=== PATIENT | male | born 1930 | race Caucasian/White ===

== ENCOUNTER 2017-03-22 20:10 | Emergency (ER) | payer MEDICARE, OTHER ==
[~2017-03-22] VITALS: Ht 185.4 cm; Wt 88.9 kg
[2017-03-22] MEDS ORDERED: ELIQUIS2.5 MG PO (20:27)
[2017-03-22] MEDS ORDERED: NORVASC2.5 MG PO (20:28)
[2017-03-22] MEDS ORDERED: TYLENOL EXTRA500 MG PO (20:28)
[2017-03-22] MEDS ORDERED: PLAVIX 75 MG TA75 M1 PO (20:29)
[2017-03-22] MEDS ORDERED: ASPIR 8181 MG PO (20:29)
[2017-03-22] MEDS ORDERED: COREG6.25 MG PO (20:29)
[2017-03-22] MEDS ORDERED: FIBER500 MG PO (20:29)
[2017-03-22] MEDS ORDERED: SYNTHROID50 MCG PO (20:30)
[2017-03-22] MEDS ORDERED: PROSCAR 5MG TABL5 MG PO (20:30)
[2017-03-22] MEDS ORDERED: IMDUR 30 MG TAB30 M1 PO (20:30)
[2017-03-22] MEDS ORDERED: RANEXA500 MG PO (20:31)
[2017-03-22] MEDS ORDERED: OMEGA-31000 M1 PO (20:31)
[2017-03-22] MEDS ORDERED: NITROSTAT0.4 M1 SUBLING (20:31)
[2017-03-22] MEDS ORDERED: ZOCOR20 MG PO (20:32)
[2017-03-22] MEDS ORDERED: ZANAFLEX4 MG PO (20:32)
[2017-03-22] MEDS ORDERED: TRAMADOL 50 MG50 MG PO (20:32)
[2017-03-22] MEDS ORDERED: AMBIEN 5 MG TABL5 M1 PO (20:33)
[2017-03-22 20:43] LABS: ABSOLUTE EOSINOPHILS 0.1 thou/uL (0.0-0.7); ABSOLUTE LYMPHOCYTES 1.7 thou/uL (0.8-5.3); ABSOLUTE MONOCYTES 0.6 thou/uL (0.0-1.2); ABSOLUTE NEUTROPHILS 6.6 thou/uL (1.6-8.1); BASOPHILS 0.3 %; EOSINOPHILS 0.6 %; HEMATOCRIT 42.8 % (42.0-52.0); HEMOGLOBIN 14.5 gm/dL (14.0-18.0); LYMPHOCYTES 19.2 %; MCH 32.6 pg (26.0-34.0); MCHC 33.9 g/dL (28.0-37.0); MCV 96.2 fL (80.0-100.0); MONOCYTES 6.4 %; MPV 6.6 fl. (7.2-11.1); NUCLEATED RBCS 0 /100WBC; PLATELET COUNT* 246 thou/uL (150-400); POLYS 73.5 %; RBC 4.45 mil/uL (4.50-6.00); RDW-CV 13.6 % (10.5-14.5)
[2017-03-22 20:53] LABS: CALCIUM 9.3 mg/dL (8.5-10.1); POTASSIUM 4.4 mmol/L (3.5-5.1)
[2017-03-22 20:58] LABS: ALBUMIN 3.5 g/dL (3.4-5.0); APTT 27.9 Seconds (25.0-31.3); INR 1.1; PROTIME 11.1 Seconds (9.20-11.50); TOTAL BILIRUBIN 0.6 mg/dL (<0.1-1.0); TOTAL PROTEIN 6.9 g/dL (6.4-8.2)
[2017-03-22 22:55] VITALS: BP 200/100
--- NOTE | 2017-03-23 14:43 | EKG ---
[place] [address] ELECTROCARDIOGRAM REPORT Name: MANJEET RICHTER Room: [facility]#: [id number] Admission: 03/22/17 Attend Phys: Discharge: 03/22/17 Date of : [birth year] Report #: [id number] THIS REPORT FOR: //name// [facility] ED Test Date: 2017-03-22 Test Time: 20:55:34 Pat Name: MANJEET RICHTER Department: Room: Gender: M Welder Apprentice Gas: HALLEY : 1930 Requested By: Brenton Mandujano Order Number: [id number] MD: Israel Lutz Measurements Intervals [place] Rate: 66 P: -28 GA: 248 QRS: -47 QRSD: 144 T: 129 QT: 446 QTc: 468 Interpretive Statements Sinus rhythm Prolonged GA interval Probable left atrial enlargement Left bundle branch block No previous ECG available for comparison Electronically Signed On 03-23-2017 14:43:14 OCCUPATIONAL THERAPIST ASSISTANT by Israel Lutz [email or web address] <ELECTRONICALLY SIGNED> By: Israel Lutz MD, [facility] 03/23/17 1443 54 54 Israel Lutz MD, FACC /EPI
== END 2017-03-22 22:55 | disposition home or self-care (01) ==
LOC: M.ERS 20:10
PROVIDERS: Family Medicine
DX: S02.80XA Fracture of other specified skull and facial bones, unspecified side, initial encounter for closed fracture (principal); S60.511A Abrasion of right hand, initial encounter; S01.81XA Laceration without foreign body of other part of head, initial encounter; Z95.0 Presence of cardiac pacemaker; Z98.890 Other specified postprocedural states; Z88.0 Allergy status to penicillin; Z88.8 Allergy status to other drugs, medicaments and biological substances; W01.0XXA Fall on same level from slipping, tripping and stumbling without subsequent striking against object, initial encounter; Y93.89 Activity, other specified; Y92.59 Other trade areas as the place of occurrence of the external cause; Y99.8 Other external cause status

== ENCOUNTER 2018-01-24 17:19 | Inpatient (IN) | payer MEDICARE, OTHER ==
[~2018-01-24] VITALS: Ht 185.4 cm; Wt 93.4 kg
--- NOTE | ~2018-01-24 | CON ---
[address] [address] CONSULTATION Name: MANJEET RICHTER Room: [place] [address] ADM IN M.R.#: [id number] Admission: 01/24/18 Attend Phys: Uche Cash MD Discharge: Date of : [birth year] Report #: [id number] THIS REPORT FOR: //name// CC: Uche Mo DATE OF SERVICE: 01/25/2018 CHIEF COMPLAINT: Slurred speech, weakness and also apparently abnormal troponin. HISTORY OF PRESENT ILLNESS: The patient is an 87-year-old man with a complex cardiovascular history, presented via ambulance transfer from his home with acute onset of slurred speech and confusion. This has since resolved. This happened after a nap yesterday afternoon. He was brought to the Emergency Room as a code stroke protocol. He was fully anticoagulated with Eliquis and was not a TPA candidate. This apparently is not the first time this has occurred. He has a known history of prior TIAs and CVAs. At this point, he is not having any symptoms and is alert, oriented without apparent deficit. There was a cardiac troponin level checked for some reason and his level was mildly elevated at 0.56. The patient denies any onset of chest pain, pressure, shortness of breath, neck or jaw discomfort. He does have a history of coronary artery disease, though. 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 He is being evaluated by his usual pharmacy retail support specialist at [facility], Dr. Andrew, and apparently for a Watchman left atrial appendage closure and it was apparently scheduled for the end of the month. He has underlying history of coronary artery disease and numerous coronary interventions. Unfortunately, none of the records from his usual hospital [facility] are available. ALLERGIES: He has allergies to METOPROLOL and PENICILLIN. HOME MEDICATIONS: Eliquis 2.5 mg p.o. b.i.d. and he has not missed any recent doses. He is on amlodipine 2.5 mg daily, aspirin 81 mg daily, carvedilol 6.25 mg p.o. b.i.d., Imdur 30 mg daily, Synthroid 50 mcg daily, ranolazine 500 mg p.o. b.i.d., Zocor 20 mg at bedtime, and Ambien p.r.n. SOCIAL HISTORY: He is . His is present. He is a nonsmoker[place] [address] CONSULTATION Name: MANJEET RICHTER Room: [facility] ADM IN .R.#: [id number] Admission: 01/24/18 Attend Phys: Uche Cash MD Discharge: Date of : [birth year] Report #: [id number] REVIEW OF SYSTEMS: NEUROLOGIC: As noted above, he has no complaints of headaches, blurry vision, slurred speech, numbness or weakness at this immediate time. This was his first neurologic event apparently in several months, but records are not available. HEMATOLOGIC: No anemia or bleeding disorders. RENAL: No history of kidney failure. Positive nephrectomy due to malignancy. ENDOCRINE: He has hypothyroidism, hyperlipidemia. CARDIOVASCULAR: Positive history of mild dyspnea, but no chest pain, pressure, weight gain, palpitations. PHYSICAL EXAMINATION: VITAL SIGNS: Blood pressure this morning is 165/73. He is in a sinus rhythm with ventricular atrial sensing and ventricular pacing at a rate of 70 on the telemetry. GENERAL: This is a pleasant elderly male. He is alert, in no apparent distress. HEENT: Eyes are intact. There is no facial asymmetry. NECK: Supple. There is no jugular venous distention. CARDIOVASCULAR: Regular. There is faint systolic murmur. I cannot hear a rub or gallop. LUNGS: Clear to auscultation. ABDOMEN: Soft, nontender. EXTREMITIES: There is no peripheral edema. NEUROLOGIC: There are no focal neurologic deficits. DIAGNOSTIC DATA: Electrocardiogram demonstrates as noted above, a pacemaker, underlying paced rhythm. Other laboratory data: His hemoglobin is 13.2; white blood cell count is 5.6; platelet count is 189,000. INR is 1.0. Sodium is 141, potassium 4.8, chloride is 108, BUN is 23, creatinine is 1.8. CT scan of the brain showed prominence of ventricles and sulci compatible with atrophy, decreased attenuation in the periventricular white matter, stable noncontrast CT scan of the brain. IMPRESSION: 1. Transient ischemic attack. His symptoms are compatible with that. He has a known history of cerebrovascular events in the past. He was not treated with TPA because of protocol, he is already anticoagulated. Fortunately, his symptoms seem to have resolved. I will defer to our Neurology colleagues for further testing, but ultimately from a cardiovascular standpoint, would be beneficial on a higher dose of Eliquis, realizing that there is an increased bleeding risk and this will need to be further discussed with his usual pharmacy retail support specialist, either as an outpatient or an inpatient transfer. We do not have full records at this point in time. 2. Coronary artery disease. He remains asymptomatic for angina. I would like [address] [address] CONSULTATION Name: MANJEET RICHTER Room: [address] IN .R.#: [id number] Admission: 01/24/18 Attend Phys: Uche Cash MD Discharge: Date of : [birth year] Report #: [id number] to continue with conservative medical treatment approach given his recent neurologic event. 3. Abnormal troponin. As noted above, he reports no angina type symptoms, his ECG is nondiagnostic, but I would not proceed aggressively with treatment of this. 4. Hypertension. I would continue with his current medical therapy, but not aggressively lower his blood pressure too quickly. 5. Oral anticoagulation. As noted above, he was scheduled for a Watchman implantation and he will need to get back in with his usual pharmacy retail support specialist to determine the timing of this. 6. Status post open heart surgery, remote valve surgery. Records are pending. By: 1045 [id number] Thomas MD, FACC /nt
[~2018-01-24 17:19] MED LIST: AMBIEN 5 MG TABL5 M1 PO; ASPIR 8181 MG PO; COREG6.25 MG PO; ELIQUIS2.5 MG PO; FIBER500 MG PO; IMDUR 30 MG TAB30 M1 PO; NITROSTAT0.4 M1 SUBLING; NORVASC2.5 MG PO; OMEGA-31000 M1 PO; PLAVIX 75 MG TA75 M1 PO; PROSCAR 5MG TABL5 MG PO; RANEXA500 MG PO; SYNTHROID50 MCG PO; TRAMADOL 50 MG50 MG PO; TYLENOL EXTRA500 MG PO; ZANAFLEX4 MG PO; ZOCOR20 MG PO
[2018-01-24 17:30] VITALS: BP 174/86
[2018-01-24 17:52] LABS: ABSOLUTE EOSINOPHILS 0.1 thou/uL (0.0-0.7); ABSOLUTE LYMPHOCYTES 1.9 thou/uL (0.8-5.3); ABSOLUTE MONOCYTES 0.6 thou/uL (0.0-1.2); ABSOLUTE NEUTROPHILS 2.9 thou/uL (1.6-8.1); BASOPHILS 0.3 %; EOSINOPHILS 1.6 %; HEMATOCRIT 41.2 % (42.0-52.0); HEMOGLOBIN 14.3 gm/dL (14.0-18.0); MCHC 34.7 g/dL (28.0-37.0); MCV 97.7 fL (80.0-100.0); MONOCYTES 10.6 %; MPV 7.1 fl. (7.2-11.1); NUCLEATED RBCS 0 /100WBC; PLATELET COUNT* 224 thou/uL (150-400); POLYS 52.5 %; RBC 4.22 mil/uL (4.50-6.00); RDW-CV 13.6 % (10.5-14.5); WBC 5.6 thou/uL (4.0-11.0)
[2018-01-24 17:55] LABS: CALCIUM 8.8 mg/dL (8.5-10.1); CREATININE 1.9 mg/dL (0.6-1.3); POTASSIUM 4.1 mmol/L (3.5-5.1)
[2018-01-24 17:57] LABS: APTT 29.2 Seconds (25.0-31.3); PROTIME 10.7 Seconds (9.20-11.50)
[2018-01-24 18:03] LABS: POC CA IONIZED 4.8 mg/dL (4.5-5.3); POC CREATININE 1.8 mg/dL (0.6-1.3); POC HEMOGLOBIN 13.9 g/dL (12.0-17.0)
[2018-01-24 18:06] LABS: ALBUMIN 3.3 g/dL (3.4-5.0); TOTAL BILIRUBIN 0.5 mg/dL (<0.1-1.0); TOTAL PROTEIN 6.5 g/dL (6.4-8.2); TROPONIN-I LEVEL 0.09 ng/mL (<0.06)
[2018-01-24 19:15] VITALS: BP 140/68
[2018-01-24 19:30] VITALS: BP 155/75; BP 158/71
[2018-01-25] VITALS: BP 157/79
[2018-01-25 04:00] VITALS: BP 136/63
[2018-01-25 08:00] VITALS: BP 165/73
[2018-01-25 12:00] VITALS: BP 102/65
--- NOTE | 2018-01-25 12:33 | EKG ---
[place] [address] ELECTROCARDIOGRAM REPORT Name: MANJEET RICHTER Room: [place] [address] ADM IN M.R.#: [id number] Admission: 01/24/18 Attend Phys: Uche Cash MD Discharge: Date of : [birth year] Report #: [id number] THIS REPORT FOR: //name// [facility] ED Test Date: 2018-01-24 Test Time: 17:48:52 Pat Name: MANJEET RICHTER Department: Room: [facility] Gender: Senior Hydrogeologist: Josiah VIGIL : 1930 Requested By: Brenton Mandujano Order Number: [id number] MD: Lex Thomas Measurements Intervals [place] Rate: 66 P: -75 [place]: 168 QRS: -73 QRSD: 182 T: 85 QT: 478 QTc: 501 Interpretive Statements Atrial-sensed ventricular-paced complexes No further analysis attempted due to paced rhythm Compared to ECG 03/22/2017 20:55:34 Sinus rhythm no longer present First degree AV block no longer present Left bundle-branch block no longer present Electronically Signed On 01-25-2018 12:33:39 SNAG GRINDER by Lex Thomas [email or web address] <ELECTRONICALLY SIGNED> By: Lex [place] MD, FACC 01/25/18 1233 1748 1748 Lex Thomas MD, FACC /EPI
[2018-01-25 16:00] VITALS: BP 135/62
[2018-01-25 19:45] VITALS: BP 151/64
[2018-01-26] VITALS: BP 130/71
[2018-01-26 04:00] VITALS: BP 130/63
[2018-01-26 08:00] VITALS: BP 143/56
--- NOTE | 2018-01-26 11:36 | EKG ---
[place] [address] ELECTROCARDIOGRAM REPORT Name: MANJEET RICHTER Room: [place] [address] ADM IN M.R.#: [id number] Admission: 01/24/18 Attend Phys: Uche Cash MD Discharge: Date of : [birth year] Report #: [id number] THIS REPORT FOR: //name// [facility] Test Date: 2018-01-24 Test Time: 23:31:25 Pat Name: MANJEET RICHTER Department: Room: [place] [address] Gender: M Head Rigger: : 1930 Requested By: Brenton Mandujano Order Number: [id number] Reading MD: Lex Thomas Measurements Intervals [place] Rate: 60 P: -69 [place]: 207 QRS: -41 QRSD: 142 T: 146 QT: 444 QTc: 444 Interpretive Statements Sinus or ectopic atrial rhythm Multiform ventricular premature complexes Left bundle branch block Compared to ECG 01/24/2018 17:48:52 Ectopic atrial rhythm now present Ventricular premature complex(es) now present Left bundle-branch block now present Ventricular-paced complex(es) or rhythm no longer present Atrial-sensed ventricular-paced complex(es) or rhythm no longer present Electronically Signed On 01-26-2018 11:35:50 OVERSEAMER by Lex Thomas [email or web address] <ELECTRONICALLY SIGNED> By: Lex Thomas MD, FACC 01/26/18 1135 2331 2331 Lex Thomas MD, FACC /EPI
--- NOTE | 2018-01-26 11:36 | EKG ---
[place] [address] ELECTROCARDIOGRAM REPORT Name: MANJEET RICHTER Room: [place] [address] ADM IN M.R.#: [id number] Admission: 01/24/18 Attend Phys: Uche Cash MD Discharge: Date of : [birth year] Report #: [id number] THIS REPORT FOR: //name// [facility] Test Date: 2018-01-25 Test Time: 06:06:22 Pat Name: MANJEET RICHTER Department: Room: [place] [address] Gender: M Awake Overnight Monitor: [facility] : 1930 Requested By: Brenton Mandujano Order Number: [id number] Reading MD: Lex Thomas Measurements Intervals [place] Rate: 62 P: -65 ID: 223 QRS: -42 QRSD: 137 T: 129 QT: 456 QTc: 463 Interpretive Statements Sinus or ectopic atrial rhythm Prolonged ID interval Left bundle branch block Compared to ECG 01/24/2018 17:48:52 Ectopic atrial rhythm now present First degree AV block now present Left bundle-branch block now present Ventricular-paced complex(es) or rhythm no longer present Atrial-sensed ventricular-paced complex(es) or rhythm no longer present Electronically Signed On 01-26-2018 11:36:00 EPIC CADENCE ANALYST by Lex Thomas [email or web address] <ELECTRONICALLY SIGNED> By: Lex [place] MD, [facility] 01/26/18 1136 5 0606 Lex Thomas MD, [facility] /EPI
[2018-01-26 12:00] VITALS: BP 142/73
[2018-01-26 13:05] VITALS: BP 142/73
[2018-01-26 13:16] VITALS: BP 142/73
--- NOTE | 2018-01-26 15:44 | EEG ---
[address] [address] EEG STUDY REPORT Name: MANJEET RICHTER Room: [address] IN M.R.#: [id number] Admission: 01/24/18 Attend Phys: Uche Cash MD Discharge: 01/26/18 Date of : [birth year] Report #: [id number] THIS REPORT FOR: //name// CC: Uche Mo DATE OF SERVICE: 01/25/2018 This patient had an episode of speech difficulty. EEG was done by placing the electrode by standard 10-20 system of electrode placement. Both referential and sequential montages were used for recording. Background activity in this patient's EEG is about 9 Hz and 30 microvolt. The patient went to sleep that is associated with bilateral slowing and vertex sharp waves. Photic stimulation was unremarkable. Throughout the record, no active epileptiform activity was noticed. IMPRESSION: This patient's EEG is intermixed with slight theta range slowing on both sides. That is a nonspecific abnormality, which can occur with dementia, encephalopathy, effect of psychotropic medication, etc. Clinical correlation is recommended. <ELECTRONICALLY SIGNED> By: Jr Tapia MD 01/26/18 1544 1218 1248Jr Tapia MD /nt
--- NOTE | 2018-01-26 15:44 | CON ---
[address] [address] CONSULTATION Name: MANJEET RICHTER Room: [address] IN M.R.#: [id number] Admission: 01/24/18 Attend Phys: Uche Cash MD Discharge: 01/26/18 Date of : [birth year] Report #: [id number] THIS REPORT FOR: //name// CC: Uche Mo DATE OF SERVICE: 01/25/2018 HISTORY OF PRESENT ILLNESS: This is an 87-year-old male patient who was evaluated by me for an episode of speech difficulty. This patient indicates that his speech spontaneously got slurred. It was sudden onset without any trauma. Subsequently, it resolved by itself. He believes it lasted a few hours, but the timing is not certain. He had no headache associated with that. Symptoms were severe. REVIEW OF SYSTEMS: Indicate that he had what he described as a stroke long time ago. It looks like he had weakness on the left side and speech difficulty. The thinks he may have had further episode since then. He has a pacemaker. He is on anticoagulation, so I suspect he probably had some atrial fibrillation some time. He has nephrectomy in the past and his GFR is less than 40. He has a pacemaker, which was put long time ago and that is incompatible with MRI the best he can tell. He does have a history of coronary artery disease. He did have some confusion and that appeared to be better. In fact, he thinks he is pretty much back to his baseline. He does have some memory deficits, but he indicates that is his baseline. He is hypertensive, but is not a known diabetic. He denies any history suggestive of COPD, constitutional symptom, musculoskeletal symptom. He denies any GI, symptoms. Denies any dermatological, hematological, psychiatric, throat, allergic symptom associated with present symptomatology. PAST MEDICAL HISTORY: Positive for stroke. FAMILY HISTORY: Negative for early age stroke. SOCIAL HISTORY: He lives with his . She was very supportive and provided part of the history. PHYSICAL EXAMINATION: Indicates the patient is alert, responsive, oriented, able to follow simple and complex command. His speech, concentration, fund of knowledge and memory is at his baseline. Cranial nerve examination 2-12 looks unremarkable. Strength, sensation, reflexes and tone looks symmetrical. There is no meningeal sign. There is no carotid bruit. There is no cerebellar sign. I could not look at the fundus very well. There is no carotid bruit in this patient. He is moderately built individual who does not have any dysmorphic features of eyes, ears and face. His vision and hearing [place] [address] CONSULTATION Name: MANJEET RICHTER Room: [address] IN M.R.#: [id number] Admission: 01/24/18 Attend Phys: Uche Cash MD Discharge: 01/26/18 Date of : [birth year] Report #: [id number] pulses are difficult to feel. He has no edema, cyanosis or jaundice. His heart appeared irregular. There is no respiratory difficulty or rhonchi. His blood pressure is 102/65, temperature is 96.3, pulse is 66. LABORATORY DATA: Indicates a white count of 5.6 and GFR is only 36. IMPRESSION: Episode of transient ischemic attacks with a prior history of transient ischemic attacks in this patient as well as stroke. Nonconvulsive seizures can present like this, but appear less likely. This happened instead of being fully anticoagulated. He is presently on a combination of aspirin and anticoagulation. I will check a carotid Doppler on him. His management is very difficult because he has one kidney and his GFR is less than 40. Therefore, doing a CT angiogram is not appropriate in this patient. His pacemaker is not compatible with MRI and therefore doing MRI is not possible in this patient. I will suggest an echocardiogram or a ANGEL. We will see what the liquid yeast supervisor think. If a thrombus can be demonstrated, then that will be indication to give anticoagulation to the patient, but if we cannot demonstrate a thrombus, which usually is the case, then I think we should await the workup and see what this workup show. RECOMMENDATIONS: 1. EEG. 2. Carotid Doppler. 3. Continue combination of aspirin and anticoagulation. 4. Echocardiogram or ANGEL. 5. We will discuss with you and Cardiology about the further management. Thank you very much for this referral. <ELECTRONICALLY SIGNED> By: Jr Tapia MD 01/26/18 1544 1357 1419Jr Tapia MD /nt
== END 2018-01-26 14:00 | disposition home or self-care (01) | DRG 70 ==
LOC: M.ERS 17:19 → M.2W 18:19 → M.TBA-ER 18:19 → M.2W 19:26
PROVIDERS: Family Medicine
DX: G93.41 Metabolic encephalopathy (principal); E43 Unspecified severe protein-calorie malnutrition; N17.0 Acute kidney failure with tubular necrosis; G45.9 Transient cerebral ischemic attack, unspecified; I25.10 Atherosclerotic heart disease of native coronary artery without angina pectoris; N18.3 Chronic kidney disease, stage 3 (moderate); Z66 Do not resuscitate; Z95.0 Presence of cardiac pacemaker; Z88.0 Allergy status to penicillin; Z88.8 Allergy status to other drugs, medicaments and biological substances; Z90.5 Acquired absence of kidney; Z79.01 Long term (current) use of anticoagulants; Z79.82 Long term (current) use of aspirin; Z79.899 Other long term (current) drug therapy

== ENCOUNTER → 2018-02-12 | Outpatient (CLI) | payer MEDICARE, OTHER ==
[2018-02-12] VITALS (9 sets, daily range): BP systolic 132–172; BP diastolic 50–85
[~2018-02-12] MED LIST changes: -NORVASC2.5 MG PO; +NORVASC5 MG PO; +ZESTRIL5 MG PO
--- NOTE | 2018-02-12 13:45 | TEE ---
[place] [address] TRANSESOPHAGEAL ECHOCARDIOGRAM Name: MANJEET RICHTER Room: [facility]#: [id number] Admission: 02/12/18 Attend Phys: Jr Tapia MD Discharge: Date of : [birth year] Date of Service: 02/12/18 1345 Report #: [id number] THIS REPORT FOR: //name// APPROVED REPORT Study performed: 02/12/2018 09:34:08 EXAM: Transesophageal Echocardiogram Patient Location: Out-Patient Status: routine BSA: 2.16 HR: 62 bpm BP: 172/86 mmHg Rhythm: NSR Other Information Study Quality: Good Indications CVA/TIA Echo Enhancing Agent Indication: Rule out Shunt Agent(s) / Amount(s) Used: Agitated Saline 10 cc Procedure After obtaining informed consent, patient underwent transesophageal echo in the [employer]. Type of Sedation : Conscious Sedation Sedation was administered by Carmen Villatoro RN. Sedation start time: 935 Case end Time: 950 Sedation was achieved intravenously with: Versed (3) Fentanyl (50) Transesophageal probe was inserted and advanced into esophagus without difficulty by Lex [place] MD, FACC. Echo enhancement indication: R/O Septal defect. Echo enhancement agent administered: Agitated Saline The ANGEL was performed without complications. Throughout the procedure, the blood pressure, pulse oximetry, cardiac rhythm, and rate were monitored. The patient tolerated the procedure without adverse effects. Recovery from conscious sedation was uneventful and vital signs were stable. Left Ventricle [address] [address] TRANSESOPHAGEAL ECHOCARDIOGRAM Name: MANJEET RICHTER Room: [facility]#: [id number] Admission: 02/12/18 Attend Phys: Jr Tapia MD Discharge: Date of : [birth year] Date of Service: 02/12/18 1345 Report #: [id number] The left ventricle is normal size. There is normal LV segmental wall motion. Paradoxical septal motion consistent with post-operative state. Mild concentric left ventricular hypertrophy. Left ventricular systolic function is normal. The left ventricular ejection fraction is within the normal range. No left ventricle thrombus noted on this study. LVEF is 50-55%. Right Ventricle The right ventricle is normal size. The right ventricular systolic function is normal. Pacemaker lead is present in the right ventricle. Atria No thrombus is visualized in the left atrium or appendage. The interatrial septum is intact with no evidence for an atrial septal defect/PFO.Negative saline contrast study. The right atrium size is normal. Aortic Valve Mild aortic valve sclerosis. Trace aortic regurgitation. There is no aortic valvular stenosis. Mitral Valve Mitral valve leaflets are mildly thickened. Mild mitral regurgitation. No evidence of mitral valve stenosis. Tricuspid Valve The tricuspid valve is normal in structure. There is no tricuspid valve regurgitation noted. Pulmonic Valve The pulmonary valve is normal in structure. There is no pulmonic valvular regurgitation. Great Vessels The aortic root is normal in size. Aortic arch is normal in caliber. Mild to Moderate Atherosclerotic plaque is present in the ascending aorta. Pericardium There is no pericardial effusion. <Conclusion> LVEF is 50-55%. There is normal LV segmental wall motion. Paradoxical septal motion consistent [place] [address] TRANSESOPHAGEAL ECHOCARDIOGRAM Name: MANJEET RICHTER Room: [facility]#: [id number] Admission: 02/12/18 Attend Phys: Jr Tapia MD Discharge: Date of : [birth year] Date of Service: 02/12/18 134 Report #: [id number] Pacemaker lead is present in the right ventricle. Mild aortic valve sclerosis. There is no aortic valvular stenosis. Trace aortic regurgitation. No evidence of mitral valve stenosis. Mild mitral regurgitation. No thrombus is visualized in the left atrium or appendage. <ELECTRONICALLY SIGNED> By: Lex [place] MD, [facility] 02/12/18 1345 1345 1345 Lex Thomas MD, FACC /INF
== END | disposition home or self-care (01) ==
LOC: M.CL 08:38
DX: I08.0 Rheumatic disorders of both mitral and aortic valves (principal); Z88.0 Allergy status to penicillin; Z88.8 Allergy status to other drugs, medicaments and biological substances; Z98.890 Other specified postprocedural states

== ENCOUNTER 2019-08-24 09:01 | Emergency (ER) | payer MEDICARE, OTHER ==
[~2019-08-24] VITALS: Ht 185.4 cm; Wt 83.9 kg
[2019-08-24] MEDS ORDERED: PROSTATE (09:14)
[2019-08-24 09:34] LABS: ABSOLUTE EOSINOPHILS 0.1 thou/uL (0.0-0.7); ABSOLUTE LYMPHOCYTES 1.1 thou/uL (0.8-5.3); ABSOLUTE MONOCYTES 0.5 thou/uL (0.0-1.2); ABSOLUTE NEUTROPHILS 3.7 thou/uL (1.6-8.1); BASOPHILS 0.5 %; EOSINOPHILS 1.9 %; HEMATOCRIT 40.9 % (42.0-52.0); HEMOGLOBIN 14.2 gm/dL (14.0-18.0); LYMPHOCYTES 20.7 %; MCH 34.3 pg (26.0-34.0); MCHC 34.7 g/dL (28.0-37.0); MCV 98.8 fL (80.0-100.0); MPV 6.6 fl. (7.2-11.1); NUCLEATED RBCS 0 /100WBC; PLATELET COUNT* 233 thou/uL (150-400); POLYS 67.9 %; RBC 4.13 mil/uL (4.50-6.00); RDW-CV 14.2 % (10.5-14.5); WBC 5.5 thou/uL (4.0-11.0)
[2019-08-24 09:46] LABS: CREATININE 1.6 mg/dL (0.6-1.3); POTASSIUM 4.4 mmol/L (3.5-5.1)
[2019-08-24 09:49] LABS: APTT 26.1 Seconds (25.0-31.3); PROTIME 10.7 Seconds (9.20-11.50)
[2019-08-24 09:57] LABS: ALBUMIN 3.5 g/dL (3.4-5.0); TOTAL BILIRUBIN 1.3 mg/dL (<0.1-1.0); TOTAL PROTEIN 7.1 g/dL (6.4-8.2)
[2019-08-24 12:35] VITALS: BP 195/79
--- NOTE | 2019-08-25 15:37 | EKG ---
[place] [address] ELECTROCARDIOGRAM REPORT Name: MANJEET RICHTER Room: [facility]#: [id number] Admission: 08/24/19 Attend Phys: Discharge: 08/24/19 Date of : [birth year] Date of Service: 08/24/19 0910 Report #: [id number] THIS REPORT FOR: //name// [facility] ED Test Date: 2019-08-24 Test Time: 09:10:58 Pat Name: MANJEET RICHTER Department: Room: Gender: Union Organizer: : 1930 Requested By: Brenton Mandujano Order Number: [id number] MD: Micah Slaughter Measurements Intervals [place] Rate: 79 P: [place]: QRS: -39 QRSD: 129 T: 140 QT: 371 QTc: 426 Interpretive Statements Afib/flut and V-paced complexes No further rhythm analysis attempted due to paced rhythm Left bundle branch block Compared to ECG 01/25/2018 06:06:22 Ectopic atrial rhythm no longer present First degree AV block no longer present Electronically Signed On 08-25-2019 15:36:32 CDT by Micah Slaughter [email or web address] <ELECTRONICALLY SIGNED> By: Micah Slaughter MD, [facility] 08/25/19 1536 0910 0910 Micah Slaughter MD, [facility] /EPI
== END 2019-08-24 12:35 | disposition short-term general hospital (02) ==
LOC: M.ERS 09:01
PROVIDERS: Family Medicine
DX: R06.00 Dyspnea, unspecified (principal); I11.0 Hypertensive heart disease with heart failure; I50.9 Heart failure, unspecified; Z93.6 Other artificial openings of urinary tract status; Z79.82 Long term (current) use of aspirin; Z79.899 Other long term (current) drug therapy